=== PATIENT | female | born 1950 | race Caucasian/White ===

== ENCOUNTER 2023-06-29 18:53 | Emergency (ER) | payer OTHER ==
[~2023-06-29] VITALS: Ht 167.6 cm; Wt 74.8 kg
[2023-06-29] MEDS ORDERED: PLAVIX75 MG (19:36)
[2023-06-29] MEDS ORDERED: TOPROL XL50 M1 (19:36)
[2023-06-29] MEDS ORDERED: METFORMIN HCL500 M3 (19:36)
[2023-06-29] MEDS ORDERED: COZAAR50 MG (19:37)
[2023-06-29] MEDS ORDERED: SINGULAIR10 MG (19:37)
[2023-06-29] MEDS ORDERED: PROTONIX40 MG (19:37)
[2023-06-29] MEDS ORDERED: PEPCID AC20 MG (19:37)
[2023-06-29] MEDS ORDERED: NEURONTIN300 MG (19:37)
[2023-06-29] MEDS ORDERED: CHILDREN'S ASPI81 MG (19:37)
[2023-06-29] MEDS ORDERED: FOLIC ACID20 MG (19:37)
[2023-06-29 20:52] LABS: HEMOGLOBIN 11.9 g/dL (12.0-15.00); MEAN CELL VOLUME 92.2 fL (80.00-100.00); MEAN CORPUSCULAR HEMOGLOBIN 30.4 pg (27.00-32.0); MEAN CORPUSCULAR HGB CONC 32.9 g/dl (32.0-36.0); PLATELET COUNT 275 K/uL (150-450); RED BLOOD COUNT 3.91 M/uL (4.00-6.00); RED CELL DISTRIBUTION WIDTH 12.5 % (11.5-14.5)
== END 2023-06-29 22:21 | disposition home or self-care (01) ==
LOC: ER 18:53
PROVIDERS: General Practice
DX: M54.31 Sciatica, right side (principal); Z20.822 Contact with and (suspected) exposure to COVID-19
CPT/HCPCS: 36415; 96372; 99283; J1885